=== PATIENT | female | born 1970 | race Caucasian/White ===

== ENCOUNTER 2021-01-29 06:20 | Day surgery (SDC) | payer MEDICAID, SELFPAY ==
[~2021-01-29] VITALS: Ht 154.9 cm; Wt 127.0 kg
[2021-01-29] MEDS ORDERED: MEPERIDINE 100 MG INJ. 100 MG/ML VIAL ONE (06:42)
[2021-01-29] MEDS ORDERED: SIMETHICONE 40 MG/0.6 ML ML ONE (06:42)
[2021-01-29] MEDS ORDERED: MIDAZOLAM HCL 5 MG/5 ML VIAL ONE (06:43)
[2021-01-29 07:33] LABS: HCG,QUAL RESULT NEGATIVE (NEGATIVE)
[2021-01-29 09:35] VITALS: BP_SYST 128
== END 2021-01-29 09:20 | disposition home or self-care (01) ==
LOC: MERGE 06:20 → SDS 06:20 → SMU 06:21 → SDS 09:20
PROVIDERS: ATTEND Internal Medicine Gastroenterology
DX: R10.84 Generalized abdominal pain (principal); D12.4 Benign neoplasm of descending colon; K21.00 Gastro-esophageal reflux disease with esophagitis, without bleeding; K64.4 Residual hemorrhoidal skin tags; K29.50 Unspecified chronic gastritis without bleeding; K29.80 Duodenitis without bleeding; Z79.899 Other long term (current) drug therapy; Z20.822 Contact with and (suspected) exposure to COVID-19
CPT/HCPCS: 43239; 45385; 84703; 88305; 88312; 88313; 99152; 99153; G0378; J2175; J2250; U0003

== ENCOUNTER 2021-03-30 11:29 | Emergency (ER) | payer MEDICAID, SELFPAY ==
[~2021-03-30] VITALS: Ht 154.9 cm; Wt 117.9 kg
--- NOTE | 2021-03-30 11:30 | NUR ---
Patient to ER bed [facility]. Side rails up. Report given to SHAWNEE Mahajan.
[2021-03-30 11:34] VITALS: BP_SYST 148
--- NOTE | 2021-03-30 11:35 | NUR ---
First contact with patient. Patient awake, alert and oriented x 3. Reporting mechanical fall at home causing pain to right side of body, mainly knee. Patient stated she "does not remember" whether she hit her head or hit her head. Completely remembers event and currently is fully oriented upon face to face assessment. PMH "thyroid" and HTN. NKDA. VSS in triage. Awaiting further evaluation.
--- NOTE | 2021-03-30 11:41 | NUR ---
Dr Lopez to bedside to evaluate patient
[2021-03-30] MEDS ORDERED: IBUPROFEN 800 MG TABLET PO ONE (11:45)
[2021-03-30] MEDS ORDERED: HYDROcodone/ACETAMIN 5-325 MG TAB (NORCO/ VICODIN) PO ONE (11:45)
--- NOTE | 2021-03-30 12:17 | NUR ---
Patient returned from Xray via [facility]
[2021-03-30] MEDS ORDERED: IBUP-1969 PO (12:41)
[2021-03-30] MEDS ORDERED: HYDR-3917 PO (12:41)
--- NOTE | 2021-03-30 13:02 | NUR ---
Patient given written and verbal discharge instructions and verbalizes understanding. ER MD discussed with patient the results and treatment provided. Patient in stable condition. ID arm band removed. Rx of Sidney and Motrin given. Patient educated on pain management and to follow up with PMD. Pain improved after one time meds given. Opportunity for questions provided and answered. Medication side effect fact sheet provided.
[2021-03-30 13:03] VITALS: BP_SYST 148
== END 2021-03-30 13:03 | disposition home or self-care (01) ==
LOC: SED 11:29
DX: S43.401A Unspecified sprain of right shoulder joint, initial encounter (principal); S83.91XA Sprain of unspecified site of right knee, initial encounter; S20.211A Contusion of right front wall of thorax, initial encounter; S70.01XA Contusion of right hip, initial encounter; W18.09XA Striking against other object with subsequent fall, initial encounter; Y93.89 Activity, other specified; Y92.89 Other specified places as the place of occurrence of the external cause; Y99.8 Other external cause status
CPT/HCPCS: 71045; 73030; 73502; 73560-TC; 99284

== ENCOUNTER 2021-06-04 12:57 | Emergency (ER) | payer MEDICAID ==
[~2021-06-04] VITALS: Ht 154.9 cm; Wt 108.9 kg
[~2021-06-04 12:57] MED LIST: HYDR-3917 PO; IBUP-1969 PO
--- NOTE | 2021-06-04 12:59 | NUR ---
Patient to ER bed 04 to gown for evaluation. Side rails up.
[2021-06-04 13:00] VITALS: BP_SYST 114
--- NOTE | 2021-06-04 13:00 | NUR ---
Pt brought by [facility]ICE[facility]Ox[facility], pt presents to ER with R hip/ R knee pain after falling one month ago,pt states pain increased today and she is not able to ambulate, pt skin pink and warm, cap refill <3, will cont to monitor.
--- NOTE | 2021-06-04 13:05 | NUR ---
Dr Clifton evaluating patient at bedside
[2021-06-04] MEDS ORDERED: HYDROcodone/ACETAMIN 5-325 MG TAB (NORCO/ VICODIN) PO ONE (13:45)
[2021-06-04] MEDS ORDERED: HYDR-3917 PO (13:56)
[2021-06-04 14:03] VITALS: BP_SYST 110
--- NOTE | 2021-06-04 14:05 | NUR ---
Patient given written and verbal discharge instructions and verbalizes understanding. ER MD discussed with patient the results and treatment provided. Patient in stable condition. ID arm band removed. Rx of Hydrocodone given. Patient educated on pain management and to follow up with PMD. Pain Scale 2/10. Opportunity for questions provided and answered. Medication side effect fact sheet provided.
== END 2021-06-04 12:59 | disposition home or self-care (01) ==
LOC: SED 12:57
DX: M25.551 Pain in right hip (principal); M25.561 Pain in right knee; I10 Essential (primary) hypertension; Z79.899 Other long term (current) drug therapy
CPT/HCPCS: 73502; 73560-TC; 81025; 99284

== ENCOUNTER 2022-11-13 12:04 | Emergency (ER) | payer MEDICAID ==
[~2022-11-13] VITALS: Ht 175.3 cm; Wt 65.8 kg
[~2022-11-13 12:04] MED LIST changes: +AMOX-423 PO; +NAPR-690 PO
--- NOTE | 2022-11-13 12:15 | NUR ---
Patient to ER bed H1 to gown for evaluation. Side rails up. Report given to SHAWNEE Grullon.
[2022-11-13 12:52] VITALS: O2SAT 99
--- NOTE | 2022-11-13 13:30 | NUR ---
Patient has been seen by anad labs and tests are done. Awaiting results at this time.
[2022-11-13] MEDS ORDERED: TRAM50TA2 PO (14:02)
[2022-11-13] MEDS ORDERED: IBUP-1969 PO (14:02)
--- NOTE | 2022-11-13 15:00 | NUR ---
Patient reevaluated by Dr. Lopez. Patient test results are good and patient is to be discharged.
[2022-11-13 15:09] VITALS: BP_SYST 141; PULSE 74; RESP 17; TEMP 97
--- NOTE | 2022-11-13 15:30 | NUR ---
Patient given written and verbal discharge instructions and verbalizes understanding. ER MD discussed with patient the results and treatment provided. Patient in stable condition. ID arm band removed. IV catheter removed intact and dressing applied, no active bleeding. Rx of ibuprofen given. Patient educated on pain management and to follow up with PMD. Pain Scale 2/10. Opportunity for questions provided and answered. Medication side effect fact sheet provided.
== END 2022-11-13 15:30 | disposition home or self-care (01) ==
LOC: SED 12:04
DX: R07.89 Other chest pain (principal); I10 Essential (primary) hypertension; Z79.899 Other long term (current) drug therapy
CPT/HCPCS: 71045; 99283

== ENCOUNTER 2022-12-11 07:49 | Emergency (ER) | payer MEDICAID ==
[~2022-12-11] VITALS: Ht 162.6 cm; Wt 113.4 kg
[~2022-12-11 07:49] MED LIST changes: +TRAM50TA2 PO
[2022-12-11 08:17] VITALS: BP_SYST 140; PULSE 96; RESP 20; TEMP 97; O2SAT 99
[2022-12-11] MEDS ORDERED: MED4 PO (08:32)
[2022-12-11 08:39] VITALS: BP_SYST 140; PULSE 96; RESP 20; TEMP 97; O2SAT 99
== END 2022-12-11 08:39 | disposition home or self-care (01) ==
LOC: SED 07:49
DX: J06.9 Acute upper respiratory infection, unspecified (principal); R50.9 Fever, unspecified; I10 Essential (primary) hypertension; Z79.899 Other long term (current) drug therapy
CPT/HCPCS: 99283